=== PATIENT | male | born 1950 | race Caucasian/White ===

== ENCOUNTER 2016-11-21 08:47 | Outpatient (CLI) | payer MEDICARE, OTHER ==
[~2016-11-21] VITALS: Ht 188 cm; Wt 104.3 kg
[~2016-11-21 08:47] MED LIST: ASP81CT PO; ATR20T PO; CHON400C PO; CITA20TA4 PO; DILT240C PO; DOCU100T7 PO; FLAX100031 PO; GLUC100016 PO; GLUC500T10 PO; MELA5CAP PO; MULT-963 PO; OMG1KC PO; OXYC-12 PO
[2016-11-21] MEDS ORDERED: BUPIVACAINE 0.25% 30 ML (SENSORCAINE) VIAL ONE (08:53)
[2016-11-21] MEDS ORDERED: TRIAMCINOLONE ACET (KENALOG-40) 40 MG/ML 1 ML VIAL ONE (08:54)
[2016-11-21 09:17] VITALS: BP 172/104
--- NOTE | 2016-11-21 13:26 | Pain Medicine-Procedure ---
Procedure Pre-Op/Post-Op Diagnosis Diagnosis: disc disorder with radiculopathy, lumbar Indications for Operation Low back pain Attending Surgeon Nico Procedure Date of Service: Nov 21, 2016 Procedure: Lumbar Epidural Steroid Injection at the L4-L5 level under Fluoroscopic Guidance Procedure: Patient was identified in the holding area. After risks, benefits, and alternatives were discussed with the patient, informed consent was obtained. Patient was brought to the fluoroscopy suite and placed prone on the procedure room table. A time out was performed. Vital signs were monitored throughout the procedure. The patients low back was prepped and draped in the usual sterile fashion. The patients skin was anesthetized using 2% Lidocaine. A Tuohy needle was inserted and advanced to the L4-L5 epidural space under fluoroscopic guidance using the loss of resistance technique and intermittent projection of fluoroscopy. There was no paresthesia with needle placement. The needle position was confirmed in both the AP and lateral view. After negative aspiration 2ml of contrast was injected under live fluoroscopy which showed good spread of the contrast in the epidural space at the appropriate level, there was no intravascular or subarachnoid spread. Again, after negative aspiration for heme or CSF, 2 ml of 0.25% Bupivicaine, 2ml of preservative free normal saline, and 80mg of Kenalog was injected. The needle was removed and a sterile bandage was placed and the patient was transferred to the recovery area in stable condition. After a brief period of observation, patient was discharged to home with no new neurological deficits and no apparent complications. Complications None CARLO BENITEZ MD Nov 21, 2016 1:26 pm
== END 2016-11-21 10:18 | disposition home or self-care (01) ==
LOC: CARD 08:47
PROVIDERS: ATTEND Pain Medicine Pain Medicine
DX: M51.16 Intervertebral disc disorders with radiculopathy, lumbar region (principal); M53.3 Sacrococcygeal disorders, not elsewhere classified; M47.816 Spondylosis without myelopathy or radiculopathy, lumbar region
CPT/HCPCS: 62323

== ENCOUNTER → 2018-03-22 | Outpatient (CLI) | payer MEDICARE, OTHER ==
--- NOTE | 2018-03-22 13:01 | Diagnostic Imaging Report ---
PROCEDURE: MRI right joint upper extremity without contrast. TECHNIQUE: Multiplanar, multisequence non contrast-enhanced MRI of the right upper extremity was accomplished. INDICATION: Shoulder pain. There are no prior studies available for comparison. FINDINGS: On the T2 fat-saturated coronal series, there are a few small areas of increased signal within the substance of the rotator cuff. These are more likely due to tendinosis than to a partial tear. For the most part, the rotator cuff appears to be intact. There may be mild inflammation of the rotator cuff, however. The acromioclavicular joint is hypertrophied and this does result in narrowing of the outlet for the supraspinatus muscle. There is also some increased signal within the joint indicating that there is an element of inflammation present. The biceps tendon and subscapularis tendon are intact. The labrum is thinned posteriorly and slightly torn on a degenerative basis. There is no abnormal signal arising from the osseous structures to suggest bone edema or a fracture. There is no evidence for a joint effusion. IMPRESSION: 1. There is mild tendinosis of the rotator cuff but for the most part the rotator cuff appears to be intact. The supraspinatus muscle is not retracted or bunched. There does appear to have been element of mild tendinitis present, however. 2. There is hypertrophy of the acromioclavicular joint and this does result in narrowing of the outlet for the supraspinatus muscle. There also appears to be inflammation of the joint itself. 3. The labrum is thinned slightly posteriorly and probably torn on a degenerative basis. 4. There is no acute bony abnormality noted. Dictated by: Dictated on workstation # [id number]
== END ==
LOC: RAD 08:02
PROVIDERS: ATTEND Orthopaedic Surgery
DX: M75.81 Other shoulder lesions, right shoulder (principal); M89.311 Hypertrophy of bone, right shoulder
CPT/HCPCS: 73221

== ENCOUNTER 2021-05-14 08:40 | Outpatient (CLI) | payer MEDICARE, OTHER | END 2021-05-14 08:58 | LOC: SLEEP 08:40 | PROVIDERS: ATTEND Otolaryngology Otolaryngology/Facial Plastic Surgery | DX: G47.33 Obstructive sleep apnea (adult) (pediatric) (principal); G47.10 Hypersomnia, unspecified; I10 Essential (primary) hypertension | CPT/HCPCS: G0399 ==

== ENCOUNTER → 2023-01-01 | Outpatient (CLI) | payer MEDICARE, OTHER ==
--- NOTE | 2023-01-01 11:53 | Diagnostic Imaging Report ---
CLINICAL INDICATIONS: Patient with chronic low back pain and recent x-rays. EXAM: MRI of the lumbar spine performed without IV contrast. Sequences include sagittal T2, sagittal T1, coronal T2, sagittal T2 fat-sat, and axial T2. COMPARISON: X-ray of the lumbar spine dated 01/01/2023. FINDINGS: There is no acute lumbar spine fracture or dislocation. There is Modic type I degenerative signal changes involving the L2-L3, L4-L5, and L5-S1 levels. There is Modic type II degenerative signal changes involving the L1-L2, L2-L3, and L4-L5 levels. There are hypertrophic spurs involving the lumbar spine. There is no significant paraspinal soft tissue abnormality. The visualized portions of the distal thoracic spinal cord, conus medullaris, and cauda equina nerve roots are unremarkable. The conus medullaris tip is seen at the upper L2 vertebral body level. There is no significant paraspinal soft tissue abnormality. There are multiple bilateral renal cysts seen. The largest cyst involves the inferior portion of the left kidney measuring 8 cm. L1-L2: There is a mild diffuse disk bulge. There is severe bilateral facet arthropathy/hypertrophy. There is no significant central canal stenosis. There is mild to moderate right neural foramen narrowing. There is no significant left neural foramen narrowing. L2-L3: There is a diffuse disk bulge with mild loss of disk space height, chronic Schmorl's nodes. There is severe bilateral facet arthropathy. There is no significant central canal stenosis. There is moderate left neural foramen narrowing. There is minimal right neural foramen narrowing. L3-L4: There is a diffuse disk bulge and severe bilateral facet arthropathy/hypertrophy. There is no significant central canal stenosis. There is mild left neural foramen narrowing and mild to moderate right neural foramen narrowing. L4-L5: There is diffuse disk bulge with moderate to severe loss of disk space height and chronic Schmorl's nodes. There is severe bilateral facet arthropathy/hypertrophy. There is mild to moderate central canal stenosis. There is severe right neural foramen narrowing and moderate left neural foramen narrowing. L5-S1: There is a diffuse disk bulge with moderate loss of disk space height. There is severe bilateral facet arthropathy with hypertrophic changes on the right. There is no significant central canal stenosis. There is mild right neural foramen narrowing and moderate to severe left neural foramen narrowing. 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 Dictated by: Dictated on workstation # [id number]
--- NOTE | 2023-01-01 16:13 | Diagnostic Imaging Report ---
CLINICAL HISTORY: Low back pain. COMPARISON: MRI performed the same date. TECHNIQUE: 4 views of the lumbar spine. FINDINGS: There is no acute fracture or dislocation of the lumbar spine. Alignment is anatomic. No evidence of dynamic instability on flexion and extension views. No focal osseous lesions. Degenerative changes are present in the lumbar spine with marginal osteophytes and facet hypertrophy. There is calcified aortic atherosclerotic plaque. IMPRESSION: 1. No acute fracture or dislocation in the lumbar spine. No evidence of dynamic instability. Dictated by: Dictated on workstation # [id number]
== END ==
LOC: RAD 09:04
PROVIDERS: ATTEND Pain Medicine Interventional Pain Medicine
DX: M51.36 Other intervertebral disc degeneration, lumbar region (principal); M51.26 Other intervertebral disc displacement, lumbar region; M48.061 Spinal stenosis, lumbar region without neurogenic claudication; M47.816 Spondylosis without myelopathy or radiculopathy, lumbar region; M51.37 Other intervertebral disc degeneration, lumbosacral region; M48.07 Spinal stenosis, lumbosacral region; M47.817 Spondylosis without myelopathy or radiculopathy, lumbosacral region
CPT/HCPCS: 72110; 72148

== ENCOUNTER → 2023-06-01 | Outpatient (CLI) | payer MEDICARE, OTHER | LOC: CARD 09:54 | PROVIDERS: ATTEND Internal Medicine Interventional Cardiology | DX: I51.7 Cardiomegaly (principal); I77.810 Thoracic aortic ectasia | CPT/HCPCS: 93306 ==